=== PATIENT | female | born 1965 | race Caucasian/White ===

== ENCOUNTER 2017-02-06 18:07 | Emergency (ER) | payer OTHER ==
[~2017-02-06] VITALS: Ht 154.9 cm; Wt 91.3 kg
[~2017-02-06 18:07] MED LIST: BACTRIM,SEPT1 TABLET PO; BAYER ASPIRIN325 MG PO; BENADRYL25 MG PO; BENICAR5 MG PO; CELEXA40 MG PO; ENDOCET 5-3251 EACH PO; Ecotrin PO; FEOSOL325 MG PO; GLIPIZIDE10 MG PO; GLIPIZIDE5 M1 PO; GLIPIZIDE5 MG PO; GLUCOPHAGE1000 MG PO; GLUCOPHAGE500 M1 G-TUBE; KEFLEX500 MG PO; LEVOTHYROXINE25 MCG PO; LOFIBRA54 MG PO; LOPID600 M1 PO; LOVASTATIN10 MG PO; MEVACOR20 MG PO; MEVACOR40 MG PO; MOTRIN600 MG PO; MOTRIN800 MG PO; OXYCODONE-APAP1 EACH PO; PERCOCET 5/31 TABLET PO; PREDNISONE50 MG PO; PRINIVIL5 MG PO; PROAIR HFA8.5 GM IH; RANITIDINE HCL150 MG PO; SIMVASTATIN40 MG PO; SYNTHROID50 MCG PO; TAGAMET300 MG PO; TESSALON200 MG PO; TRADJENTA5 MG PO; ZANTAC150 MG PO; ZOFRAN4 MG PO
[2017-02-06 18:23] LABS: POINT-OF-CARE METER ID UU13113778
[2017-02-06] MEDS ORDERED: ATARAX,VISTARIL50 MG PO (18:36)
[2017-02-06 18:50] VITALS: BP 135/67
== END 2017-02-06 18:50 | disposition home or self-care (01) ==
LOC: RME 18:07 → EME 18:07 → RME 18:50
PROVIDERS: Physician Assistant Medical
DX: E11.65 Type 2 diabetes mellitus with hyperglycemia (principal); E78.5 Hyperlipidemia, unspecified; I10 Essential (primary) hypertension; K21.9 Gastro-esophageal reflux disease without esophagitis; F17.200 Nicotine dependence, unspecified, uncomplicated
CPT/HCPCS: 81003; 82948; 99281; 99283

== ENCOUNTER 2017-02-17 00:14 | Emergency (ER) | payer OTHER ==
[~2017-02-17] VITALS: Ht 165.1 cm; Wt 92.9 kg
[~2017-02-17 00:14] MED LIST changes: +ATARAX,VISTARIL50 MG PO
[2017-02-17 00:33] LABS: POINT-OF-CARE METER ID UU13113778
[2017-02-17 00:53] LABS: HEMATOCRIT 40.2 % (36.0-46.0); MCH 32.9 PG (29.0-34.0); MCHC 34.8 G/DL (30.0-36.0); MCV 94.4 FL (83-99); MEAN PLAT.VOLUME 9.6 uM^3 (9.5-12.4); PLATELET COUNT 220 K/uL (156-360); RBC DIS.WIDTH-CV 12.2 % (11.8-14.6); RED BLOOD COUNT 4.26 M/uL (3.80-5.20); WHITE BLOOD COUNT 7.5 K/uL (4.1-10.2)
[2017-02-17 01:03] LABS: CHLORIDE 100 mEq/L (99-109); POTASSIUM 3.8 mEq/L (3.7-5.4); SODIUM 134 mEq/L (136-147)
[2017-02-17 01:06] LABS: ANION GAP 13 MEQ/L (2-14)
[2017-02-17 01:07] LABS: TOTAL BILIRUBIN 0.3 mg/dL (0.0-1.0)
[2017-02-17 01:08] LABS: ALKALINE PHOSPHATASE 95 IU/L (3-129); GLUCOSE 402 mg/dL (70-99)
[2017-02-17 01:09] LABS: GFR ESTIMATE (CALCULATED) > 59 mL/min/
[2017-02-17 01:10] LABS: UREA NITROGEN (BUN) 21 mg/dL (9-23)
[2017-02-17 01:17] LABS: QUANTITATIVE HCG < 4.0 MIU/ML
[2017-02-17 03:35] LABS: POINT-OF-CARE METER ID UU14100415
[2017-02-17 03:49] VITALS: BP 113/60
== END 2017-02-17 03:49 | disposition home or self-care (01) ==
LOC: EME 00:14
PROVIDERS: Emergency Medicine
DX: E11.65 Type 2 diabetes mellitus with hyperglycemia (principal); M54.41 Lumbago with sciatica, right side; E78.5 Hyperlipidemia, unspecified; Z79.84 Long term (current) use of oral hypoglycemic drugs; F17.200 Nicotine dependence, unspecified, uncomplicated; K21.9 Gastro-esophageal reflux disease without esophagitis
CPT/HCPCS: 80053; 81003; 82948; 84702; 85027; 99281; 99284; J1885

== ENCOUNTER 2017-04-08 18:00 | Emergency (ER) | payer OTHER ==
[~2017-04-08] VITALS: Ht 154.9 cm; Wt 93.4 kg
[2017-04-08 21:43] LABS: HEMATOCRIT 41.1 % (36.0-46.0); MCH 31.7 PG (29.0-34.0); MCHC 32.8 G/DL (30.0-36.0); MCV 96.5 FL (83-99); PLATELET COUNT 240 K/uL (156-360); RBC DIS.WIDTH-CV 13.1 % (11.8-14.6); RBC DIS.WIDTH-SD 45.9 % (39-53); RED BLOOD COUNT 4.26 M/uL (3.80-5.20)
[2017-04-08 21:51] LABS: CHLORIDE 102 mEq/L (99-109); POTASSIUM 4.2 mEq/L (3.7-5.4); SODIUM 139 mEq/L (136-147)
[2017-04-08 21:53] LABS: GLUCOSE 192 mg/dL (70-99)
[2017-04-08 21:54] LABS: ANION GAP 10 MEQ/L (2-14)
[2017-04-08 21:57] LABS: GFR ESTIMATE (CALCULATED) > 59 mL/min/
[2017-04-08 21:58] LABS: UREA NITROGEN (BUN) 16 mg/dL (9-23)
[2017-04-08] MEDS ORDERED: NEURONTIN300 MG PO (23:14)
[2017-04-08 23:45] VITALS: BP 104/60
== END 2017-04-08 23:48 | disposition home or self-care (01) ==
LOC: EME 18:00
PROVIDERS: Nurse Practitioner Family
DX: E11.42 Type 2 diabetes mellitus with diabetic polyneuropathy (principal); G56.00 Carpal tunnel syndrome, unspecified upper limb; E11.65 Type 2 diabetes mellitus with hyperglycemia; Z79.84 Long term (current) use of oral hypoglycemic drugs; E78.5 Hyperlipidemia, unspecified; K21.9 Gastro-esophageal reflux disease without esophagitis; F32.9 Major depressive disorder, single episode, unspecified; F17.200 Nicotine dependence, unspecified, uncomplicated
CPT/HCPCS: 80048; 81003; 85027; 99281; 99284

== ENCOUNTER 2017-04-22 17:53 | Emergency (ER) | payer OTHER ==
[~2017-04-22] VITALS: Ht 154.9 cm; Wt 94.0 kg
[~2017-04-22 17:53] MED LIST changes: +NEURONTIN300 MG PO
[2017-04-22] MEDS ORDERED: MOBIC15 MG PO (19:48)
[2017-04-22] MEDS ORDERED: ULTRACET1 TABLET PO (19:48)
[2017-04-22 20:15] VITALS: BP 117/65
== END 2017-04-22 20:16 | disposition home or self-care (01) ==
LOC: EME 17:53
DX: M79.641 Pain in right hand (principal); I10 Essential (primary) hypertension; E78.5 Hyperlipidemia, unspecified; E11.9 Type 2 diabetes mellitus without complications; E03.9 Hypothyroidism, unspecified
CPT/HCPCS: 99281; 99283

== ENCOUNTER 2017-06-04 19:30 | Emergency (ER) | payer OTHER ==
[~2017-06-04] VITALS: Ht 154.9 cm; Wt 93.4 kg
[~2017-06-04 19:30] MED LIST changes: +MOBIC15 MG PO; +ULTRACET1 TABLET PO
[2017-06-04 20:55] LABS: ADD MIUA? NO; BILIRUBIN NEGATIVE; BLOOD NEGATIVE; COLOR YELLOW ((YELLOW)); GLUCOSE (STRIP) NEGATIVE; KETONES 5; LEUKOCYTES NEGATIVE; NITRITE NEGATIVE; PROTEIN (STRIP) 30; SPECIFIC GRAVITY 1.029 (1.000-1.030); UCUL ADDED? NO; UROBILINOGEN 0.2 MG/DL (0.2-1.0)
[2017-06-04] MEDS ORDERED: DIFLUCAN150 MG PO (21:15)
[2017-06-04] MEDS ORDERED: HYCODAN SYRUP480 ML PO (21:15)
[2017-06-04] MEDS ORDERED: MYCELEX10 MG PO (21:15)
[2017-06-04 21:25] VITALS: BP 108/62
== END 2017-06-04 21:26 | disposition home or self-care (01) ==
LOC: EME 19:30
PROVIDERS: Physician Assistant
DX: B37.0 Candidal stomatitis (principal); M54.5 Low back pain; E11.9 Type 2 diabetes mellitus without complications; F17.200 Nicotine dependence, unspecified, uncomplicated; E78.5 Hyperlipidemia, unspecified; F41.9 Anxiety disorder, unspecified; Z79.84 Long term (current) use of oral hypoglycemic drugs
CPT/HCPCS: 81003; 99281; 99283

== ENCOUNTER 2017-06-09 20:42 | Emergency (ER) | payer OTHER ==
[~2017-06-09] VITALS: Ht 154.9 cm; Wt 92.5 kg
[~2017-06-09 20:42] MED LIST changes: +DIFLUCAN150 MG PO; +HYCODAN SYRUP480 ML PO; +MYCELEX10 MG PO
[2017-06-09 20:49] VITALS: BP 100/53
[2017-06-09 23:35] LABS: HEMATOCRIT 36.5 % (36.0-46.0); MCV 94.1 FL (83-99); PLATELET COUNT 229 K/uL (156-360); RBC DIS.WIDTH-CV 13.2 % (11.8-14.6); RBC DIS.WIDTH-SD 45.1 % (39-53); RED BLOOD COUNT 3.88 M/uL (3.80-5.20); WHITE BLOOD COUNT 8.3 K/uL (4.1-10.2)
[2017-06-09 23:44] LABS: CHLORIDE 104 mEq/L (99-109); POTASSIUM 3.8 mEq/L (3.7-5.4); SODIUM 141 mEq/L (136-147)
[2017-06-09 23:45] LABS: GLUCOSE 98 mg/dL (70-99)
[2017-06-09 23:47] LABS: ANION GAP 13 MEQ/L (2-14)
[2017-06-09 23:49] LABS: GFR ESTIMATE (CALCULATED) 36 mL/min/
[2017-06-09 23:50] LABS: UREA NITROGEN (BUN) 24 mg/dL (9-23)
[2017-06-10 00:20] LABS: INTERNAL CONTROL VALID? YES; MONOSPOT (MONONUCLEOSIS SEROL) NEGATIVE
[2017-06-10] MEDS ORDERED: NYSTATIN100000 UN1 PO (00:43)
[2017-06-10] MEDS ORDERED: AUGMENTIN875 MG PO (00:43)
== END 2017-06-10 01:30 | disposition home or self-care (01) ==
LOC: EME 20:42
PROVIDERS: Physician Assistant
DX: B37.0 Candidal stomatitis (principal); J32.9 Chronic sinusitis, unspecified; J02.9 Acute pharyngitis, unspecified; R05 Cough; I10 Essential (primary) hypertension; E78.5 Hyperlipidemia, unspecified; E03.9 Hypothyroidism, unspecified; E11.9 Type 2 diabetes mellitus without complications; Z79.84 Long term (current) use of oral hypoglycemic drugs; F17.200 Nicotine dependence, unspecified, uncomplicated
CPT/HCPCS: 80048; 85027; 86308; 87651 90; 99281; 99284

== ENCOUNTER 2017-07-22 21:15 | Emergency (ER) | payer OTHER ==
[~2017-07-22] VITALS: Ht 154.9 cm; Wt 94.2 kg
[~2017-07-22 21:15] MED LIST changes: +AUGMENTIN875 MG PO; +NYSTATIN100000 UN1 PO
[2017-07-22] MEDS ORDERED: GABAPENTIN300 MG PO (23:21)
[2017-07-22 23:40] VITALS: BP 124/70
== END 2017-07-22 23:40 | disposition home or self-care (01) ==
LOC: EME 21:15
DX: G62.9 Polyneuropathy, unspecified (principal); E78.5 Hyperlipidemia, unspecified; E11.9 Type 2 diabetes mellitus without complications; Z79.84 Long term (current) use of oral hypoglycemic drugs; F17.200 Nicotine dependence, unspecified, uncomplicated
CPT/HCPCS: 99281; 99284

== ENCOUNTER 2017-07-29 19:07 | Emergency (ER) | payer OTHER ==
[~2017-07-29] VITALS: Ht 154.9 cm; Wt 94.8 kg
[~2017-07-29 19:07] MED LIST changes: +GABAPENTIN300 MG PO
[2017-07-29 19:40] LABS: POINT-OF-CARE METER ID UU13113778; POINT-OF-CARE USER ID 608261302
[2017-07-29 20:02] LABS: ADD MIUA? NO; BILIRUBIN NEGATIVE; BLOOD NEGATIVE; COLOR STRAW ((YELLOW)); GLUCOSE (STRIP) NEGATIVE; KETONES NEGATIVE; LEUKOCYTES NEGATIVE; NITRITE NEGATIVE; PROTEIN (STRIP) NEGATIVE; SPECIFIC GRAVITY 1.005 (1.000-1.030); UROBILINOGEN 0.2 MG/DL (0.2-1.0)
[2017-07-29 20:05] LABS: UCUL ADDED? NO
[2017-07-29 21:23] LABS: HEMATOCRIT 37.5 % (36.0-46.0); MCH 31.3 PG (29.0-34.0); MCHC 33.6 G/DL (30.0-36.0); MCV 93.3 FL (83-99); MEAN PLAT.VOLUME 9.2 uM^3 (9.5-12.4); PLATELET COUNT 194 K/uL (156-360); RBC DIS.WIDTH-CV 12.9 % (11.8-14.6); RED BLOOD COUNT 4.02 M/uL (3.80-5.20); WHITE BLOOD COUNT 6.6 K/uL (4.1-10.2)
[2017-07-29 21:51] LABS: CHLORIDE 100 mEq/L (99-109); POTASSIUM 3.6 mEq/L (3.7-5.4); SODIUM 139 mEq/L (136-147)
[2017-07-29 21:53] LABS: GLUCOSE 97 mg/dL (70-99)
[2017-07-29 21:55] LABS: ANION GAP 14 MEQ/L (2-14); TOTAL BILIRUBIN 0.3 mg/dL (0.0-1.0)
[2017-07-29 21:57] LABS: ALKALINE PHOSPHATASE 84 IU/L (3-129); GFR ESTIMATE (CALCULATED) > 59 mL/min/
[2017-07-29 21:58] LABS: UREA NITROGEN (BUN) 10 mg/dL (9-23)
[2017-07-29 22:09] LABS: QUANTITATIVE HCG < 4.0 MIU/ML
[2017-07-29] MEDS ORDERED: [UNRECOGNIZED DRUG - OTHER] (22:14)
[2017-07-29 22:33] VITALS: BP 128/68
== END 2017-07-29 22:36 | disposition home or self-care (01) ==
LOC: EME 19:07
DX: R60.0 Localized edema (principal); E11.9 Type 2 diabetes mellitus without complications; Z79.84 Long term (current) use of oral hypoglycemic drugs; E78.5 Hyperlipidemia, unspecified; F17.200 Nicotine dependence, unspecified, uncomplicated; F41.9 Anxiety disorder, unspecified
CPT/HCPCS: 80053; 81003; 82948; 84702; 85027; 99281; 99283

== ENCOUNTER 2017-08-20 20:14 | Emergency (ER) | payer OTHER ==
[~2017-08-20] VITALS: Ht 154.9 cm; Wt 95.3 kg
[~2017-08-20 20:14] MED LIST changes: +[UNRECOGNIZED DRUG - OTHER]
[2017-08-20] MEDS ORDERED: VALIUM5 MG PO (20:35)
[2017-08-20] MEDS ORDERED: INDOCIN50 MG PO (20:35)
[2017-08-20] MEDS ORDERED: ULTRACET1 TABLET PO (20:35)
[2017-08-20 21:16] VITALS: BP 116/66
== END 2017-08-20 21:17 | disposition home or self-care (01) ==
LOC: EME 20:14
DX: S29.012A Strain of muscle and tendon of back wall of thorax, initial encounter (principal); M54.42 Lumbago with sciatica, left side; G57.02 Lesion of sciatic nerve, left lower limb; X50.0XXA Overexertion from strenuous movement or load, initial encounter; Y99.0 Civilian activity done for income or pay
CPT/HCPCS: 99281; 99284; J3010

== ENCOUNTER 2017-10-04 21:30 | Emergency (ER) | payer OTHER ==
[~2017-10-04] VITALS: Ht 154.9 cm; Wt 97.1 kg
[~2017-10-04 21:30] MED LIST changes: +INDOCIN50 MG PO; +VALIUM5 MG PO
[2017-10-04 21:48] LABS: HEMATOCRIT 39.9 % (36.0-46.0); MCH 31.1 PG (29.0-34.0); MCHC 34.3 G/DL (30.0-36.0); MCV 90.5 FL (83-99); MEAN PLAT.VOLUME 8.9 uM^3 (9.5-12.4); PLATELET COUNT 248 K/uL (156-360); RBC DIS.WIDTH-CV 12.2 % (11.8-14.6); RBC DIS.WIDTH-SD 40.4 % (39-53); RED BLOOD COUNT 4.41 M/uL (3.80-5.20)
[2017-10-04 21:56] LABS: CHLORIDE 97 mEq/L (99-109); POTASSIUM 3.6 mEq/L (3.7-5.4); SODIUM 138 mEq/L (136-147)
[2017-10-04 21:58] LABS: GLUCOSE 195 mg/dL (70-99)
[2017-10-04 21:59] LABS: ANION GAP 15 MEQ/L (2-14)
[2017-10-04 22:00] LABS: TOTAL BILIRUBIN 0.2 mg/dL (0.0-1.0)
[2017-10-04 22:01] LABS: ALKALINE PHOSPHATASE 88 IU/L (3-129)
[2017-10-04 22:02] LABS: GFR ESTIMATE (CALCULATED) > 59 mL/min/
[2017-10-04 22:03] LABS: UREA NITROGEN (BUN) 12 mg/dL (9-23)
[2017-10-04 22:12] LABS: QUANTITATIVE HCG < 4.0 MIU/ML
[2017-10-05 00:23] LABS: ADD MIUA? NO; BILIRUBIN NEGATIVE; BLOOD NEGATIVE; COLOR YELLOW ((YELLOW)); GLUCOSE (STRIP) NEGATIVE; KETONES NEGATIVE; LEUKOCYTES NEGATIVE; NITRITE NEGATIVE; PROTEIN (STRIP) 30; SPECIFIC GRAVITY 1.013 (1.000-1.030); UCUL ADDED? NO; UROBILINOGEN 0.2 MG/DL (0.2-1.0)
[2017-10-05 00:36] VITALS: BP 144/75
== END 2017-10-05 00:37 | disposition home or self-care (01) ==
LOC: EME 21:30
DX: K42.9 Umbilical hernia without obstruction or gangrene (principal); E11.9 Type 2 diabetes mellitus without complications; E78.5 Hyperlipidemia, unspecified; Z79.84 Long term (current) use of oral hypoglycemic drugs; F41.9 Anxiety disorder, unspecified; F17.200 Nicotine dependence, unspecified, uncomplicated
CPT/HCPCS: 80053; 81003; 84702; 85027; 99281; 99284

== ENCOUNTER 2018-03-27 18:12 | Emergency (ER) | payer OTHER ==
[~2018-03-27] VITALS: Ht 154.9 cm; Wt 97.9 kg
[2018-03-27 18:55] LABS: HEMATOCRIT 41.9 % (36.0-46.0); HEMOGLOBIN 14.6 G/DL (11.9-15.5); MCH 31.9 PG (29.0-34.0); MCHC 34.8 G/DL (30.0-36.0); MCV 91.7 FL (83-99); PLATELET COUNT 265 K/uL (156-360); RBC DIS.WIDTH-CV 13.2 % (11.8-14.6); RBC DIS.WIDTH-SD 44.1 % (39-53); RED BLOOD COUNT 4.57 M/uL (3.80-5.20); WHITE BLOOD COUNT 13.9 K/uL (4.1-10.2)
[2018-03-27 19:09] LABS: ALBUMIN 3.4 g/dL (3.2-4.8); CHLORIDE 101 mEq/L (99-109); POTASSIUM 3.9 mEq/L (3.7-5.4); SODIUM 138 mEq/L (136-147)
[2018-03-27 19:12] LABS: GLUCOSE 242 mg/dL (70-99); TOTAL PROTEIN 7.1 g/dL (6.4-8.3)
[2018-03-27 19:14] LABS: TOTAL BILIRUBIN 0.2 mg/dL (0.0-1.0)
[2018-03-27 19:15] LABS: ALKALINE PHOSPHATASE 104 IU/L (3-129); CREATININE 0.9 mg/dL (0.6-1.3); GFR ESTIMATE (CALCULATED) > 59 mL/min/
[2018-03-27 19:16] LABS: UREA NITROGEN (BUN) 16 mg/dL (9-23)
[2018-03-27 19:17] LABS: AST (GOT) 38 IU/L (2-34)
[2018-03-27 19:18] LABS: ALT (GPT) 91 IU/L (3-49)
[2018-03-27 20:55] LABS: BILIRUBIN NEGATIVE; BLOOD LARGE; GLUCOSE (STRIP) 150; KETONES NEGATIVE; LEUKOCYTES MODERATE; NITRITE POSITIVE; PROTEIN (STRIP) 100; UROBILINOGEN 0.2 MG/DL (0.2-1.0)
[2018-03-27 21:13] LABS: APPEARANCE TURBID ((CLEAR)); COLOR BROWN ((YELLOW))
[2018-03-27 21:28] LABS: RED BLOOD CELLS TNTC /HPF (0-5)
[2018-03-27 21:29] LABS: UCUL ADDED? YES
[2018-03-27] MEDS ORDERED: KEFLEX500 MG PO (22:17)
[2018-03-27 22:34] VITALS: BP 115/60
== END 2018-03-27 22:35 | disposition home or self-care (01) ==
LOC: EME 18:12 → EXP 18:12
PROVIDERS: Physician Assistant Medical
DX: N30.91 Cystitis, unspecified with hematuria (principal); K76.0 Fatty (change of) liver, not elsewhere classified; R16.2 Hepatomegaly with splenomegaly, not elsewhere classified; I25.10 Atherosclerotic heart disease of native coronary artery without angina pectoris; E11.9 Type 2 diabetes mellitus without complications; Z79.84 Long term (current) use of oral hypoglycemic drugs; E78.5 Hyperlipidemia, unspecified; F41.9 Anxiety disorder, unspecified; F17.200 Nicotine dependence, unspecified, uncomplicated
CPT/HCPCS: 74176; 80053; 81003; 84702; 85027; 87077; 87086; 87186; 99281; 99284

== ENCOUNTER 2018-05-13 13:03 | Emergency (ER) | payer OTHER ==
[~2018-05-13] VITALS: Ht 154.9 cm; Wt 99.2 kg
[2018-05-13 16:24] LABS: HEMATOCRIT 42.4 % (36.0-46.0); HEMOGLOBIN 14.5 G/DL (11.9-15.5); MCH 32.4 PG (29.0-34.0); MCHC 34.2 G/DL (30.0-36.0); MCV 94.6 FL (83-99); PLATELET COUNT 240 K/uL (156-360); RBC DIS.WIDTH-CV 13.6 % (11.8-14.6); RBC DIS.WIDTH-SD 47.9 % (39-53); RED BLOOD COUNT 4.48 M/uL (3.80-5.20); WHITE BLOOD COUNT 8.6 K/uL (4.1-10.2)
[2018-05-13 16:36] LABS: CHLORIDE 105 mEq/L (99-109); POTASSIUM 3.9 mEq/L (3.7-5.4); SODIUM 140 mEq/L (136-147)
[2018-05-13 16:38] LABS: GLUCOSE 64 mg/dL (70-99)
[2018-05-13 16:41] LABS: CREATININE 0.8 mg/dL (0.6-1.3); GFR ESTIMATE (CALCULATED) > 59 mL/min/
[2018-05-13 16:42] LABS: UREA NITROGEN (BUN) 11 mg/dL (9-23)
[2018-05-13] MEDS ORDERED: MEDROL DOSEPAK4 MG PO (16:57)
[2018-05-13] MEDS ORDERED: BACLOFEN10 MG PO (16:59)
[2018-05-13 17:15] VITALS: BP 134/77
== END 2018-05-13 17:50 | disposition home or self-care (01) ==
LOC: EME 13:03
PROVIDERS: Nurse Practitioner Family
DX: M54.12 Radiculopathy, cervical region (principal); M50.322 Other cervical disc degeneration at C5-C6 level; E11.649 Type 2 diabetes mellitus with hypoglycemia without coma; Z79.84 Long term (current) use of oral hypoglycemic drugs; F17.200 Nicotine dependence, unspecified, uncomplicated; E78.5 Hyperlipidemia, unspecified; F41.9 Anxiety disorder, unspecified
CPT/HCPCS: 72040; 80048; 82948; 85027; 99281; 99284; J1885